=== PATIENT | female | born 1995 | race African-American/Black ===

== ENCOUNTER 2019-07-14 17:27 | Emergency (ER) | payer OTHER, SELFPAY ==
[2019-07-14] MEDS ORDERED: Ondansetron ODT 4 MG TAB ONE (17:55)
[2019-07-14 19:00] LABS: Bacteria/HPF 2+ HPF (None Seen); Bilirubin Negative (Negative); Blood, Urine 1+ (Negative); Clarity Turbid (Clear); Glucose, Urine (Dipstick) Normal (Negative); Leukocyte 500 Leu/uL (Negative); Nitrite 2+ (Negative); Pregnancy Test - Urine (BHCG) Negative (Negative); Pregu Control Background? CLEAR/WHITE (CLR/WHITE); Pregu Control Bar Appear? YES (CONTROL BAR); Protein, Urine (Dipstick) 100 mg/dL (Neg-Trace); Specific Gravity 1.025 (1.002-1.036); Transitional Epithelial 0-3 HPF (None Seen); Urobilinogen Normal mg/dL (Less than 2); WBC/HPF Greater than 50 HPF (0-3)
== END 2019-07-14 19:15 | disposition home or self-care (01) ==
LOC: ERS 17:27
DX: N39.0 Urinary tract infection, site not specified (principal); R11.10 Vomiting, unspecified; J45.909 Unspecified asthma, uncomplicated; F41.9 Anxiety disorder, unspecified; F31.9 Bipolar disorder, unspecified; F17.210 Nicotine dependence, cigarettes, uncomplicated
CPT/HCPCS: 81003; 81015; 81025; 99284; Q0162